=== PATIENT | female | born 1980 | race Caucasian/White ===

== ENCOUNTER 2019-10-20 16:10 | Emergency (ER) | payer MEDICAID ==
[~2019-10-20] VITALS: Ht 157.5 cm; Wt 64.0 kg
[2019-10-20 16:26] VITALS: Ht 157.5 cm; Wt 64.0 kg
[2019-10-20 20:46] VITALS: BP 124/68
== END 2019-10-20 20:46 | disposition home or self-care (01) ==
LOC: ED 16:10
DX: J06.9 Acute upper respiratory infection, unspecified (principal); E11.9 Type 2 diabetes mellitus without complications

== ENCOUNTER 2020-03-03 13:51 | Emergency (ER) | payer MEDICAID ==
[~2020-03-03] VITALS: Ht 162.6 cm; Wt 62.6 kg
[2020-03-03 14:02] VITALS: Ht 162.6 cm; Wt 62.6 kg
[2020-03-03 17:58] VITALS: BP 113/70
== END 2020-03-03 17:58 | disposition home or self-care (01) ==
LOC: ED 13:51
DX: F41.9 Anxiety disorder, unspecified (principal); E11.8 Type 2 diabetes mellitus with unspecified complications
CPT/HCPCS: 82962; Q0092

== ENCOUNTER 2020-08-08 17:11 | Emergency (ER) | payer MEDICAID, SELFPAY ==
[~2020-08-08] VITALS: Ht 160 cm; Wt 59.0 kg
[2020-08-08 17:13] VITALS: Ht 160 cm; Wt 59.0 kg
[2020-08-08 21:38] LABS: BASOPHIL % 0.4 % (0-2); PLATELET COUNT 324 x10^3mcL (130-400); RED CELL DISTRIBUTION WIDTH 19.2 % (11.5-14.5)
[2020-08-08 21:48] LABS: CALCIUM 8.9 mg/dL (8.5-10.1); CARBON DIOXIDE 23.2 mmol/L (21-32); CHLORIDE SERUM 103 mmol/L (98-107); CREATININE SERUM 0.5 mg/dL (0.6-1.0); GFR1 > 60 mL/min; GLUCOSE SERUM 102 mg/dL (74-106); POTASSIUM SERUM 3.7 mmol/L (3.5-5.1); SODIUM SERUM 136 mmol/L (136-145)
[2020-08-08 23:44] VITALS: BP 107/62
== END 2020-08-08 23:44 | disposition home or self-care (01) ==
LOC: ED 17:11
PROVIDERS: Emergency Medicine
DX: F41.9 Anxiety disorder, unspecified (principal); D53.9 Nutritional anemia, unspecified; E11.9 Type 2 diabetes mellitus without complications

== ENCOUNTER 2020-08-30 18:24 | Emergency (ER) | payer MEDICAID, SELFPAY ==
[~2020-08-30] VITALS: Ht 165.1 cm; Wt 58.5 kg
[2020-08-30 18:28] VITALS: Ht 165.1 cm; Wt 58.5 kg
[2020-08-30 21:16] LABS: BASOPHIL % 0.4 % (0.2-1.3); PLATELET COUNT 260 x10^3mcL (179-408)
[2020-08-30 21:19] LABS: RED CELL DISTRIBUTION WIDTH 22.5 % (12.3-17.7)
[2020-08-30 21:32] LABS: rbc morphology (normal/abnorm) ABNORMAL (NORMAL); target cell (codocyte) 1+
[2020-08-30 21:33] LABS: CARBON DIOXIDE 24.7 mmol/L (21-32); CHLORIDE SERUM 103 mmol/L (98-107); CREATININE SERUM 0.6 mg/dL (0.6-1.0); GFR1 > 60 mL/min; GLUCOSE SERUM 105 mg/dL (74-106); POTASSIUM SERUM 4.3 mmol/L (3.5-5.1); SODIUM SERUM 139 mmol/L (136-145)
[2020-08-30 22:30] VITALS: BP 137/88
== END 2020-08-30 22:30 | disposition home or self-care (01) ==
LOC: ED 18:24
PROVIDERS: Emergency Medicine
DX: R00.2 Palpitations (principal); R06.02 Shortness of breath